=== PATIENT | male | born 1995 | race Caucasian/White ===

== ENCOUNTER 2024-08-01 22:09 | Emergency (ER) | payer MEDICAID ==
[~2024-08-01] VITALS: Ht 165.1 cm; Wt 75.0 kg
[2024-08-01 22:14] VITALS: TEMP 97.8; O2SAT 99
[2024-08-02 01:05] LABS: HEMOGLOBIN. 16.9 g/dL (14.0-18.0); MEAN CORPUSCULAR HEMOGLOBIN 29.5 pg (28.0-32.0); MEAN CORPUSCULAR HGB CONC 33.2 g/dL (31.0-37.0); MEAN CORPUSCULAR VOLUME 88.9 fL (80.0-94.0); MEAN PLATELET VOLUME 8.9 fl (7.4-10.4); PLATELET 235 x1000/uL (130-400); RED BLOOD CELL COUNT 5.73 mill/uL (4.7-6.1); WHITE BLOOD COUNT 16.4 x1000/uL (4.5-11.0)
[2024-08-02 01:07] LABS: CHLORIDE 105 mEq/L (98-107); POTASSIUM 3.3 mEq/L (3.5-5.1); SODIUM 140 mEq/L (136-145)
[2024-08-02 01:08] LABS: CALCIUM 9.9 mg/dL (8.7-10.4); CARBON DIOXIDE 24 mEq/L (21-32)
[2024-08-02 01:13] LABS: CREATININE 1.3 mg/dL (0.6-1.3); GLUCOSE 123 mg/dL (70-105); UREA NITROGEN BLOOD 18 mg/dL (9-23)
[2024-08-02 01:15] LABS: ALANINE AMINOTRANSFERASE 55 IU/L (10-49); ALBUMIN 5.1 g/dL (3.2-4.8); ASPARTATE AMINOTRANSFERASE 25 IU/L (<34); BILIRUBIN DIRECT 0.3 mg/dL (<=3.0); BILIRUBIN TOTAL 1.1 mg/dL (0.1-1.0); PROTEIN TOTAL 8.4 g/dL (6.0-8.3)
[2024-08-02 01:19] LABS: DIFFERENTIAL COMMENT 1
[2024-08-02] MEDS: KETOROLAC 15MG/ML VIAL IM ONE (01:33)
[2024-08-02] MEDS: ONDANSETRON HCL 4MG TABLET PO ONE (01:33)
[2024-08-02] MEDS ORDERED: ONDA4TAB50 MT (02:34)
[2024-08-02 03:15] LABS: PLATELET ESTIMATE NORMAL
[2024-08-02 04:27] VITALS: BP 103/65; PULSE 98; RESP 16; O2SAT 100
== END 2024-08-02 04:28 | disposition home or self-care (01) ==
LOC: ER 22:09
DX: R10.11 Right upper quadrant pain (principal); K58.9 Irritable bowel syndrome, unspecified
CPT/HCPCS: 99285; 36415; 76705; 80076; 80048; 85025; 96372; Q0162; J1885